=== PATIENT | female | born 1995 | race African-American/Black ===

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

== ENCOUNTER 2020-10-28 08:13 | Inpatient (IN) | payer MEDICAID ==
[~2020-10-28] VITALS: Ht 167.6 cm; Wt 99.8 kg
[2020-10-28] MEDS ORDERED: LIDOCAINE HCL 2%/EPINEPHRINE 1:100,000 20 ML VIAL INFIL ONE (08:33)
[2020-10-28] MEDS ORDERED: BUTORPHANOL TARTRATE 2 MG/ML VIAL IV PRN (09:45)
[2020-10-28] MEDS ORDERED: METHYLERGONOVINE MALEATE 0.2 MG/ML IM PRN (09:45)
[2020-10-28] MEDS ORDERED: NALOXONE HCL 0.4 MG/ML 1ML VIAL IM PRN (09:45)
[2020-10-28] MEDS ORDERED: DEXT 5%/LR + PITOCIN 20UNITS/L 1,000 ML IV SCH (09:45)
[2020-10-28] MEDS ORDERED: LIDOCAINE HCL 1% 20ML VIAL (Pyxis) INJ INFIL SCH (09:45)
[2020-10-28 10:46] LABS: BASOPHILS % 0.3 % (0.0-2.0); EOSINOPHILS % 0.2 % (0.0-5.0); HEMATOCRIT. 29.2 % (36.0-48.0); HEMOGLOBIN. 9.1 g/dL (12.0-16.0); LYMPHOCYTES % 17.5 % (20.0-50.0); MEAN CORPUSCULAR HEMOGLOBIN 20.5 pg (28.0-32.0); MEAN CORPUSCULAR VOLUME 66.1 fL (81.0-99.0); MONOCYTES % 7.6 % (2.0-8.0); NEUTROPHILS % 74.4 % (40.0-76.0); PLATELET 236 x1000/uL (130-400); RED BLOOD CELL COUNT 4.42 mill/uL (4.2-5.4); RED CELL DISTRIBUTION WIDTH 18.6 % (11.6-14.6)
[2020-10-28 10:47] LABS: CLARITY URINE CLEAR (CLEAR); COLOR URINE YELLOW (YELLOW); KETONES URINE 1+ (NEGATIVE); LEUKOCYTE ESTERASE URINE 1+ (NEGATIVE); NITRITE URINE NEGATIVE (NEGATIVE); OCCULT BLOOD URINE NEGATIVE (NEGATIVE); PH URINE 8.5 (4.5-8.0); PROTEIN URINE 1+ (NEGATIVE); SPECIFIC GRAVITY URINE 1.017 (1.005-1.030)
[2020-10-28 10:58] LABS: PARTIAL THROMBOPLASTIN TIME 26.5 sec (23.4-31.0); PROTHROMBIN TIME 10.3 sec (9.6-11.0)
[2020-10-28] MEDS ORDERED: ROPIVACAINE HCL/PF EPIDURAL 200 ML EP SCH (11:00)
[2020-10-28 11:06] LABS: *BARBITURATES SCREEN URINE NEGATIVE (NEGATIVE)
[2020-10-28 11:07] LABS: *AMPHETAMINES SCREEN URINE NEGATIVE (NEGATIVE); *BENZODIAZEPINES SCREEN URINE NEGATIVE (NEGATIVE); *COCAINE SCREEN URINE NEGATIVE (NEGATIVE); METHADONE URINE SCREEN NEGATIVE (NEGATIVE); OPIATES URINE SCREEN NEGATIVE (NEGATIVE); PHENCYCLIDINE URINE SCREEN NEGATIVE (NEGATIVE)
[2020-10-28 11:08] LABS: CANNABINOID URINE SCREEN NEGATIVE (NEGATIVE)
[2020-10-28 11:30] LABS: HEPATITIS B SURFACE ANTIGEN NEGATIVE
[2020-10-28 11:32] LABS: PLATELET ESTIMATE NORMAL
[2020-10-28] MEDS ORDERED: PENICILLIN G POTASSIUM 5 MMU in DEXT 5% WATER 100 ML IV SCH (12:00)
[2020-10-28] MEDS: LACTATED RINGERS 1,000 ML IV SCH ×2 (12:18→22:06)
[2020-10-28] MEDS ORDERED: ONDANSETRON HCL 4MG/2ML INJ IV PRN ×2 (13:30→20:45)
[2020-10-28] MEDS: PENICILLIN G POTASSIUM 2.5 MMU in DEXTROSE 5% WATER 50 ML IV SCH ×2 (16:01→19:52)
[2020-10-28] MEDS ORDERED: ROPIVACAINE HCL/PF EPIDURAL 200 ML EPI ONE (20:15)
[2020-10-28] MEDS ORDERED: FENTANYL CITRATE/PF 50MCG/ML 2ML VIAL ONE (20:15)
[2020-10-29] VITALS (8 sets, daily range): BP systolic 102–113; BP diastolic 55–76
[2020-10-29] MEDS ORDERED: FENTANYL CITRATE/PF 50MCG/ML 2ML VIAL ONE (00:36)
[2020-10-29] MEDS ORDERED: MORPHINE SULFATE/PF 1MG/ML 10ML AMP ONE (00:36)
[2020-10-29] MEDS: PENICILLIN G POTASSIUM 2.5 MMU in DEXTROSE 5% WATER 50 ML IV SCH (00:45)
[2020-10-29] MEDS ORDERED: CITRIC ACID/SODIUM CITRATE SOLN 30ML UDC PO NR (00:45)
[2020-10-29] MEDS ORDERED: OXYTOCIN 10 UNITS/ML 1ML ONE (01:24)
[2020-10-29] MEDS ORDERED: CEFAZOLIN SODIUM 1000MG/VIAL ONE (01:25)
[2020-10-29] MEDS ORDERED: MIDAZOLAM HCL 2 MG/2 ML VIAL ONE (01:35)
[2020-10-29] MEDS ORDERED: DIPHENHYDRAMINE 50MG/ML VIAL ONE (01:37)
[2020-10-29] MEDS ORDERED: KETOROLAC 60MG/2ML VIAL IM ONE (01:37)
[2020-10-29] MEDS ORDERED: BUTORPHANOL TARTRATE 2 MG/ML VIAL IV PRN ×2 (01:45→02:00)
[2020-10-29] MEDS ORDERED: NALOXONE HCL 0.4 MG/ML 1ML VIAL IV PRN (01:45)
[2020-10-29] MEDS ORDERED: DIPHENHYDRAMINE 50MG/ML VIAL IM PRN (01:45)
[2020-10-29] MEDS ORDERED: ONDANSETRON HCL 4MG/2ML INJ IV PRN (02:45)
[2020-10-29] MEDS ORDERED: HYDROCODONE/ACETAMINOPHEN 5/325MG TABLET PO PRN (02:45)
[2020-10-29] MEDS ORDERED: BISACODYL 10MG SUPP PR PRN (02:45)
[2020-10-29] MEDS ORDERED: IBUPROFEN 400MG TABLET PO PRN (02:45)
[2020-10-29] MEDS: DEXT 5%/LR + PITOCIN 20UNITS/L 1,000 ML IV SCH ×2 (04:12→14:25)
[2020-10-29] MEDS: KETOROLAC 30MG/ML VIAL IV SCH ×2 (05:18→11:14)
[2020-10-29 07:15] LABS: BASOPHILS % 0.3 % (0.0-2.0); EOSINOPHILS % 0.1 % (0.0-5.0); HEMATOCRIT. 24.9 % (36.0-48.0); HEMOGLOBIN. 7.6 g/dL (12.0-16.0); LYMPHOCYTES % 20.9 % (20.0-50.0); MEAN CORPUSCULAR HEMOGLOBIN 20.8 pg (28.0-32.0); MEAN CORPUSCULAR VOLUME 67.9 fL (81.0-99.0); MEAN PLATELET VOLUME 9.5 fl (7.4-10.4); MONOCYTES % 7.3 % (2.0-8.0); NEUTROPHILS % 71.4 % (40.0-76.0); PLATELET 179 x1000/uL (130-400); RED BLOOD CELL COUNT 3.67 mill/uL (4.2-5.4); RED CELL DISTRIBUTION WIDTH 18.9 % (11.6-14.6)
[2020-10-29] MEDS: MAGNESIUM/ALUMINUM HYDROXIDE/SIMETHICONE 30ML UDC PO SCH ×2 (14:26→21:18)
[2020-10-29] MEDS: DIPHENHYDRAMINE 25MG CAPSULE PO PRN (14:26)
[2020-10-29] MEDS: SIMETHICONE 80MG TABLET CHEW PO SCH ×2 (14:26→21:18)
[2020-10-29] MEDS: PRENATAL VIT/FE FUMARATE/FA TABLET PO SCH (14:26)
[2020-10-29] MEDS ORDERED: DOCUSATE SODIUM 100MG CAPSULE PO SCH (21:00)
[2020-10-30] VITALS: BP 104/60
[2020-10-30] MEDS: IBUPROFEN 800MG TABLET PO PRN ×3 (00:28→17:02)
[2020-10-30] MEDS: DIPHENHYDRAMINE 25MG CAPSULE PO PRN (00:30)
[2020-10-30 04:00] VITALS: BP_SYST 101; BP_SYST 105; BP_DIAS 50; BP_DIAS 69
[2020-10-30 08:00] VITALS: BP 93/53
[2020-10-30] MEDS: MAGNESIUM/ALUMINUM HYDROXIDE/SIMETHICONE 30ML UDC PO SCH ×2 (09:35→13:00)
[2020-10-30] MEDS: FERROUS SULFATE 325MG TABLET PO SCH ×2 (09:35→13:00)
[2020-10-30] MEDS: PRENATAL VIT/FE FUMARATE/FA TABLET PO SCH (09:35)
[2020-10-30] MEDS: SIMETHICONE 80MG TABLET CHEW PO SCH ×2 (09:35→13:00)
[2020-10-30 17:02] VITALS: BP 105/50
== END 2020-10-30 17:00 | disposition left against medical advice (07) | DRG 540 ==
LOC: OBSVTOIN 08:13 → 8 EST LDRP 08:13 → 8 EST A/PP 10-29 05:26
PROVIDERS: ADMIT Specialist; ATTEND Specialist
PROC: 10D00Z1 Extraction of Products of Conception, Low, Open Approach (ICD-10-PCS; principal; 2020-10-29)
DX: O77.0 Labor and delivery complicated by meconium in amniotic fluid (principal); D64.9 Anemia, unspecified; O99.02 Anemia complicating childbirth; Z3A.38 38 weeks gestation of pregnancy; Z37.0 Single live birth; Z20.822 Contact with and (suspected) exposure to COVID-19; Z53.29 Procedure and treatment not carried out because of patient's decision for other reasons
CPT/HCPCS: 36415; 76805; 76818; 80305; 81003; 85025; 86592; 86703; 86762; 86850; 86900; 87340; 87426; 88307; 99281; G0378; J0595; J0690; J1200; J1885; J2250; J2274; J2405; J2540; J2590; J2795; J3010; J3490; J7060; J7120; Q0163; A4315

== ENCOUNTER 2022-03-07 23:45 | Emergency (ER) | payer MEDICAID ==
[~2022-03-07] VITALS: Ht 167.6 cm; Wt 89.2 kg
[2022-03-07 23:55] VITALS: BP 99/64
[2022-03-08 00:52] LABS: CLARITY URINE TURBID (CLEAR); COLOR URINE DARK YELLOW (YELLOW); KETONES URINE TRACE (NEGATIVE); LEUKOCYTE ESTERASE URINE 3+ (NEGATIVE); NITRITE URINE NEGATIVE (NEGATIVE); OCCULT BLOOD URINE TRACE (NEGATIVE); PH URINE 6.5 (4.5-8.0); PROTEIN URINE 2+ (NEGATIVE); SPECIFIC GRAVITY URINE 1.022 (1.005-1.030)
[2022-03-08] MEDS ORDERED: ONDANSETRON HCL 4MG/2ML INJ IM STA (01:39)
[2022-03-08] MEDS ORDERED: ACETAMINOPHEN 325MG TABLET PO STA (01:39)
[2022-03-08] MEDS ORDERED: LIDOCAINE HCL/PF 1% 10 MG/ML 5ML VIAL INFIL ONE (01:45)
[2022-03-08] MEDS ORDERED: CEFTRIAXONE SODIUM 1 G/VIAL IM ONE (01:45)
[2022-03-08 02:11] LABS: BASOPHILS % 0.5 % (0.0-2.0); EOSINOPHILS % 0.3 % (0.0-5.0); HEMATOCRIT. 30.1 % (36.0-48.0); HEMOGLOBIN. 9.5 g/dL (12.0-16.0); LYMPHOCYTES % 14.1 % (20.0-50.0); MEAN CORPUSCULAR HEMOGLOBIN 21.6 pg (28.0-32.0); MEAN CORPUSCULAR VOLUME 68.6 fL (81.0-99.0); MEAN PLATELET VOLUME 9.9 fl (7.4-10.4); MONOCYTES % 11.4 % (2.0-8.0); NEUTROPHILS % 73.7 % (40.0-76.0); PLATELET 231 x1000/uL (130-400); RED BLOOD CELL COUNT 4.38 mill/uL (4.2-5.4); RED CELL DISTRIBUTION WIDTH 18.3 % (11.6-14.6)
[2022-03-08 02:19] LABS: CHLORIDE 102 mEq/L (98-107)
[2022-03-08 02:24] LABS: PLATELET ESTIMATE NORMAL
[2022-03-08] MEDS ORDERED: ONDA4TAB50 PO (03:42)
[2022-03-08] MEDS ORDERED: ACET-2708 PO (03:42)
[2022-03-08] MEDS ORDERED: AMOX1TAB16 PO (03:42)
== END 2022-03-08 04:00 | disposition home or self-care (01) ==
LOC: ER 03-08 00:16
DX: O26.899 Other specified pregnancy related conditions, unspecified trimester (principal); O23.40 Unspecified infection of urinary tract in pregnancy, unspecified trimester; N39.0 Urinary tract infection, site not specified; O99.019 Anemia complicating pregnancy, unspecified trimester; H66.90 Otitis media, unspecified, unspecified ear; R10.9 Unspecified abdominal pain; Z3A.00 Weeks of gestation of pregnancy not specified
CPT/HCPCS: 36415; 76770; 80053; 81003; 81025; 83690; 85025; 87077; 87086; 87186; 96372; 99284; J0696; J2405; J3490

== ENCOUNTER 2022-07-27 10:56 | Observation (INO) | payer MEDICAID ==
[~2022-07-27 10:56] MED LIST: ACET-2708 PO; AMOX1TAB16 PO; ONDA4TAB50 PO
== END 2022-07-27 14:30 | disposition home or self-care (01) ==
LOC: 8 EST LDRP 10:56
PROVIDERS: ADMIT Specialist; ATTEND Specialist
DX: O26.892 Other specified pregnancy related conditions, second trimester (principal); R10.9 Unspecified abdominal pain; O42.912 Preterm premature rupture of membranes, unspecified as to length of time between rupture and onset of labor, second trimester; Z3A.26 26 weeks gestation of pregnancy
CPT/HCPCS: 59025; 76805; G0378; 99281